=== PATIENT | male | born 1935 | race Caucasian/White ===

== ENCOUNTER 2018-06-10 14:20 | Inpatient (IN) ==
[2018-06-10] MEDS ORDERED: MORPHINE 4 MG/1 ML VIAL IV PRN (17:40)
[2018-06-10] MEDS ORDERED: ACETAMINOPHEN 325 MG TABLET PO PRN (17:40)
[2018-06-10] MEDS ORDERED: ONDANSETRON 4 MG/2 ML VIAL IV PRN (17:40)
[2018-06-10] MEDS ORDERED: SODIUM CHLORIDE 0.9% 1,000 ML IV PRN (17:42)
[2018-06-10] MEDS ORDERED: FUROSEMIDE 20 MG/2 ML VIAL IV ONE (17:54)
[2018-06-10 18:12] LABS: Basophils % 0.2 % (0.0-0.8); Eosinophils # 0.2 10*3/uL (0.0-0.87); Eosinophils % 2.3 % (0.00-10.9); Immature Granulocytes % 2.1 %; Immature Granulocytes Absolute 0.14 #; Lymphocytes # 0.9 10*3/uL (1.4-4.0); Lymphocytes % 13.5 % (21.2-54.2); Mean Corpuscular HGB Conc 28.7 GM/DL (32-36); Mean Corpuscular Hemoglobin 37 PG (27-34); Mean Corpuscular Volume 128.1 FL (87-102); Mean Platelet Volume 9.8 FL (9.6-12.0); Monocytes # 0.4 10*3/uL (0.11-0.8); Monocytes % 6.1 % (1.7-12.7); NRBC # 0.02 10*3/uL; Neutrophils # 4.9 10*3/uL (1.4-7.4); Neutrophils % 75.8 % (38.7-73.9); Platelet Count 237 T/CUMM (130-400); Red Blood Count 1.39 MC/CUMM (3.8-5.5); Red Cell Distribution Width 18.4 % (9.3-17.3); White Blood Count 6.5 T/CUMM (4-12)
[2018-06-10 18:15] LABS: Hematocrit 17.8 VOL% (42.0-52.0); Hemoglobin 5.1 GM/DL (14.0-18.0)
[2018-06-10 18:30] LABS: Folate 6.3 NG/ML (5.4-24.0); Vitamin B12 572 PG/ML (211-911)
[2018-06-10 18:35] LABS: Anisocytosis 1+; Polychromasia 1+
[2018-06-10 18:36] LABS: Platelet Estimate Adequate; Tear Drop Cells Few
[2018-06-10] MEDS ORDERED: ALBUTEROL/IPRATROPIUM 3 ML NEB RESP TX PRN (18:39)
[2018-06-10] MEDS ORDERED: FUROSEMIDE 20 MG TABLET PO PRN (18:39)
[2018-06-10 18:46] LABS: Bilirubin,Indirect 1.1 MG/DL (0.0-1.0); Haptoglobin < 8.0 MG/DL (30-200); Uric Acid 12.5 MG/DL (3.5-7.2)
[2018-06-10] MEDS ORDERED: PANTOPRAZOLE 40 MG VIAL IV SCH (21:00)
[2018-06-10] MEDS ORDERED: LISINOPRIL 5 MG TABLET PO SCH (21:00)
[2018-06-10] MEDS ORDERED: SPIRONOLACTONE 25 MG TABLET PO SCH (21:00)
[2018-06-10] MEDS: TAMSULOSIN 0.4 MG CAPSULE PO SCH (21:21)
[2018-06-10] MEDS: FERROUS SULFATE 325 MG TABLET PO SCH (21:21)
[2018-06-10] MEDS: SERTRALINE 25 MG TABLET PO SCH (21:21)
[2018-06-10] MEDS: PANTOPRAZOLE 40 MG VIAL IV SCH (21:22)
[2018-06-10 23:47] LABS: Sedimentation Rate-Westergren 110 MM/HR (0-20)
[2018-06-11 03:37] LABS: Basophils % 0.2 % (0.0-0.8); Eosinophils # 0.2 10*3/uL (0.0-0.87); Eosinophils % 3.6 % (0.00-10.9); Immature Granulocytes % 1.7 %; Lymphocytes # 0.9 10*3/uL (1.4-4.0); Lymphocytes % 14.9 % (21.2-54.2); Mean Corpuscular HGB Conc 28.8 GM/DL (32-36); Mean Corpuscular Hemoglobin 37 PG (27-34); Mean Corpuscular Volume 126.9 FL (87-102); Mean Platelet Volume 9.9 FL (9.6-12.0); Monocytes # 0.5 10*3/uL (0.11-0.8); Monocytes % 7.9 % (1.7-12.7); NRBC # 0.04 10*3/uL; Neutrophils # 4.2 10*3/uL (1.4-7.4); Neutrophils % 71.7 % (38.7-73.9); Platelet Count 224 T/CUMM (130-400); Red Blood Count 1.34 MC/CUMM (3.8-5.5); White Blood Count 5.9 T/CUMM (4-12)
[2018-06-11 03:51] LABS: Hemoglobin 4.9 GM/DL (14.0-18.0)
[2018-06-11 03:52] LABS: Calcium 8.8 MG/DL (8.5-10.1); Osmolality,Calculated 285.4 MOS/KG (273-304); Potassium 3.6 MMOL/L (3.5-5.1)
[2018-06-11 05:25] LABS: Hypochromasia 1+; Macrocytosis Slight; Platelet Estimate Adequate; Polychromasia Slight
[2018-06-11 08:01] LABS: Hemoglobin A1 (Alkaline) 97.5 % (96.5-98.5); Hemoglobin A2 (Alkaline) 2.5 % (1.5-3.5)
[2018-06-11] MEDS ORDERED: CYANOCOBALAMIN 1000 MCG/1 ML VIAL SUBCUT SCH (09:00)
[2018-06-11] MEDS: PANTOPRAZOLE 40 MG VIAL IV SCH ×2 (09:30→20:07)
[2018-06-11] MEDS: TAMSULOSIN 0.4 MG CAPSULE PO SCH ×2 (09:30→20:06)
[2018-06-11] MEDS: FERROUS SULFATE 325 MG TABLET PO SCH ×2 (09:30→20:07)
[2018-06-11] MEDS ORDERED: IMMUNE GLOBULIN 10% 20 GM in PREMIX 1 EACH IV ONE (17:26)
[2018-06-11] MEDS ORDERED: diphenhydrAMINE CAP 25 MG CAPSULE PO PRN (17:27)
[2018-06-11] MEDS: methylPREDNISolone SOD SUC 125 MG/2 ML VIAL IV SCH (18:40)
[2018-06-11] MEDS: SERTRALINE 25 MG TABLET PO SCH (20:06)
[2018-06-11 20:37] LABS: Apearance,Urine CLEAR (Clear); Bacteria,Urine Occasional /HPF (Few); Bilirubin,Urine Negative (Negative); Blood, Urine Negative (Negative); Glucose,Urine (UA) Negative (Negative); Hyaline Casts,Urine 1 /LPF (0-3); Ketones,Urine Negative (Negative); Mucus,Urine Occasional /LPF (Occasional); Nitrite,Urine Positive (Negative); Protein,Urine Negative; RBC,Urine 1 /HPF (0-4); Renal Epithelial Cells,Urine Occasional /HPF (<1); Squamous Epithelial Cell,Urine Occasional /HPF (0-10); Urine Color Amber (Yellow); Urine Specific Gravity 1.011 (1.001-1.035); WBC,Urine 6 /HPF (0-6)
[2018-06-12 05:31] LABS: Immature Granulocytes % 2.3 %; Immature Granulocytes Absolute 0.06 #; Lymphocytes # 0.4 10*3/uL (1.4-4.0); Lymphocytes % 16.2 % (21.2-54.2); Mean Corpuscular HGB Conc 29.1 GM/DL (32-36); Mean Corpuscular Hemoglobin 37 PG (27-34); Mean Corpuscular Volume 125.9 FL (87-102); Mean Platelet Volume 9.7 FL (9.6-12.0); Monocytes # 0.1 10*3/uL (0.11-0.8); Monocytes % 2.3 % (1.7-12.7); Neutrophils # 2.1 10*3/uL (1.4-7.4); Neutrophils % 79.2 % (38.7-73.9); Platelet Count 208 T/CUMM (130-400); Red Blood Count 1.39 MC/CUMM (3.8-5.5); Red Cell Distribution Width 17.3 % (9.3-17.3); White Blood Count 2.7 T/CUMM (4-12)
[2018-06-12 05:34] LABS: Hemoglobin 5.1 GM/DL (14.0-18.0)
[2018-06-12 05:35] LABS: Hematocrit 17.5 VOL% (42.0-52.0)
[2018-06-12 05:36] LABS: INR 1.5; PT Patient Result 16.1 SECS
[2018-06-12] MEDS: methylPREDNISolone SOD SUC 125 MG/2 ML VIAL IV SCH ×2 (05:40→17:12)
[2018-06-12 05:42] LABS: Calcium 8.2 MG/DL (8.5-10.1); Osmolality,Calculated 282.8 MOS/KG (273-304); Potassium 4.1 MMOL/L (3.5-5.1)
[2018-06-12 06:03] LABS: Hypochromasia 1+; Platelet Estimate Adequate
[2018-06-12 06:04] LABS: Macrocytosis Slight; Polychromasia Slight
[2018-06-12] MEDS: PANTOPRAZOLE 40 MG VIAL IV SCH ×2 (08:57→20:33)
[2018-06-12] MEDS: TAMSULOSIN 0.4 MG CAPSULE PO SCH ×2 (08:57→20:33)
[2018-06-12] MEDS: FERROUS SULFATE 325 MG TABLET PO SCH ×2 (08:57→20:33)
[2018-06-12] MEDS: cefTRIAXone 1,000 MG in SYRINGE 1 EACH IV SCH (08:57)
[2018-06-12] MEDS: FOLIC ACID 1 MG TABLET PO SCH (08:57)
[2018-06-12] MEDS ORDERED: PNEUMOCOCCAL VACCINE (13 VALENT) 0.5 ML SYRINGE IM ONE (09:00)
[2018-06-12] MEDS ORDERED: IMMUNE GLOBULIN 10% 20 GM in PREMIX 1 EACH IV ONE (11:30)
[2018-06-12] MEDS: WARFARIN 3 MG TABLET PO SCH (17:12)
[2018-06-12] MEDS: SERTRALINE 25 MG TABLET PO SCH (20:33)
[2018-06-13 04:25] LABS: INR 1.3; PT Patient Result 13.1 SECS
[2018-06-13] MEDS: methylPREDNISolone SOD SUC 125 MG/2 ML VIAL IV SCH ×2 (05:48→17:45)
[2018-06-13 09:53] LABS: Immature Granulocytes % 1.2 %; Immature Granulocytes Absolute 0.06 #; Lymphocytes # 0.3 10*3/uL (1.4-4.0); Lymphocytes % 6.5 % (21.2-54.2); Mean Corpuscular Hemoglobin 36 PG (27-34); Mean Corpuscular Volume 121.2 FL (87-102); Mean Platelet Volume 9.8 FL (9.6-12.0); Monocytes # 0.1 10*3/uL (0.11-0.8); Monocytes % 2.8 % (1.7-12.7); Neutrophils # 4.4 10*3/uL (1.4-7.4); Neutrophils % 89.5 % (38.7-73.9); Platelet Count 250 T/CUMM (130-400); Red Blood Count 1.65 MC/CUMM (3.8-5.5); Red Cell Distribution Width 16.9 % (9.3-17.3)
[2018-06-13 10:17] LABS: Albumin 2.9 G/DL (3.4-5.0); Bilirubin,Total 0.8 MG/DL (0.2-1.0); Calcium 8.9 MG/DL (8.5-10.1); Potassium 3.9 MMOL/L (3.5-5.1)
[2018-06-13] MEDS: cefTRIAXone 1,000 MG in SYRINGE 1 EACH IV SCH (10:19)
[2018-06-13] MEDS: PANTOPRAZOLE 40 MG VIAL IV SCH ×2 (10:19→20:33)
[2018-06-13] MEDS: FOLIC ACID 1 MG TABLET PO SCH (10:20)
[2018-06-13] MEDS: FERROUS SULFATE 325 MG TABLET PO SCH ×2 (10:20→20:32)
[2018-06-13] MEDS: TAMSULOSIN 0.4 MG CAPSULE PO SCH ×2 (10:20→20:32)
[2018-06-13] MEDS ORDERED: IMMUNE GLOBULIN 10% 20 GM in PREMIX 1 EACH IV ONE (11:18)
[2018-06-13 12:41] LABS: Platelet Estimate Normal
[2018-06-13 12:42] LABS: Anisocytosis 2+; Macrocytosis 2+; Polychromasia 2+
[2018-06-13 12:43] LABS: Tear Drop Cells Few
[2018-06-13] MEDS: WARFARIN 3 MG TABLET PO SCH (17:44)
[2018-06-13] MEDS: SERTRALINE 25 MG TABLET PO SCH (20:32)
[2018-06-14] MEDS: methylPREDNISolone SOD SUC 125 MG/2 ML VIAL IV SCH ×2 (05:54→16:48)
[2018-06-14 06:11] LABS: Hematocrit 20.1 VOL% (42.0-52.0); Immature Granulocytes % 2.8 %; Immature Granulocytes Absolute 0.15 #; Lymphocytes # 0.4 10*3/uL (1.4-4.0); Lymphocytes % 6.9 % (21.2-54.2); Mean Corpuscular HGB Conc 29.9 GM/DL (32-36); Mean Corpuscular Hemoglobin 36 PG (27-34); Mean Corpuscular Volume 121.8 FL (87-102); Mean Platelet Volume 10.1 FL (9.6-12.0); Monocytes # 0.2 10*3/uL (0.11-0.8); Monocytes % 3.8 % (1.7-12.7); Neutrophils # 4.6 10*3/uL (1.4-7.4); Neutrophils % 86.5 % (38.7-73.9); Platelet Count 214 T/CUMM (130-400); Red Blood Count 1.65 MC/CUMM (3.8-5.5); White Blood Count 5.3 T/CUMM (4-12)
[2018-06-14 06:14] LABS: INR 1.2; PT Patient Result 12.8 SECS
[2018-06-14 06:47] LABS: Albumin 2.8 G/DL (3.4-5.0); Bilirubin,Total 0.9 MG/DL (0.2-1.0); Calcium 8.9 MG/DL (8.5-10.1); Osmolality,Calculated 289.7 MOS/KG (273-304); Potassium 3.9 MMOL/L (3.5-5.1); Total Protein 6.9 G/DL (6.4-8.3)
[2018-06-14 07:24] LABS: Band Neutrophils 1 % (0-10); Lymphocytes 9 % (20-55); Platelet Estimate Normal; Segmented Neutrophils 87 % (50-85); Total Cells Counted 100
[2018-06-14] MEDS: FOLIC ACID 1 MG TABLET PO SCH (09:50)
[2018-06-14] MEDS: TAMSULOSIN 0.4 MG CAPSULE PO SCH ×2 (09:51→21:31)
[2018-06-14] MEDS: FERROUS SULFATE 325 MG TABLET PO SCH ×2 (09:51→21:31)
[2018-06-14] MEDS: PANTOPRAZOLE 40 MG VIAL IV SCH ×2 (09:51→21:31)
[2018-06-14] MEDS ORDERED: ACETAMINOPHEN 325 MG TABLET PO ONE (10:57)
[2018-06-14] MEDS ORDERED: diphenhydrAMINE 50 MG/1 ML VIAL IV ONE (10:59)
[2018-06-14] MEDS ORDERED: FAMOTIDINE 20 MG/2 ML VIAL IV ONE (11:00)
[2018-06-14] MEDS ORDERED: PNEUMOCOCCAL VACCINE (13 VALENT) 0.5 ML SYRINGE IM ONE (12:00)
[2018-06-14] MEDS ORDERED: SODIUM CHLORIDE 0.9% IV ONE (16:00)
[2018-06-14] MEDS ORDERED: RITUXIMAB IV ONE (16:00)
[2018-06-14] MEDS: PHENAZOPYRIDINE 95 MG TABLET PO SCH (16:48)
[2018-06-14] MEDS: WARFARIN 3 MG TABLET PO SCH (17:01)
[2018-06-14] MEDS: SERTRALINE 25 MG TABLET PO SCH (21:31)
[2018-06-15] MEDS: methylPREDNISolone SOD SUC 125 MG/2 ML VIAL IV SCH ×2 (05:50→17:56)
[2018-06-15 06:55] LABS: Hematocrit 22.6 VOL% (42.0-52.0); Hemoglobin 6.8 GM/DL (14.0-18.0); Immature Granulocytes % 3.8 %; Immature Granulocytes Absolute 0.22 #; Lymphocytes # 0.4 10*3/uL (1.4-4.0); Lymphocytes % 7.3 % (21.2-54.2); Mean Corpuscular HGB Conc 30.1 GM/DL (32-36); Mean Corpuscular Hemoglobin 36 PG (27-34); Mean Corpuscular Volume 119.6 FL (87-102); Mean Platelet Volume 9.8 FL (9.6-12.0); Monocytes # 0.3 10*3/uL (0.11-0.8); Monocytes % 4.4 % (1.7-12.7); Neutrophils # 4.8 10*3/uL (1.4-7.4); Neutrophils % 84.5 % (38.7-73.9); Platelet Count 210 T/CUMM (130-400); Red Blood Count 1.89 MC/CUMM (3.8-5.5); Red Cell Distribution Width 15.3 % (9.3-17.3); White Blood Count 5.7 T/CUMM (4-12)
[2018-06-15 06:57] LABS: INR 1.3; PT Patient Result 13.5 SECS
[2018-06-15 07:15] LABS: Hypochromasia 1+; Macrocytosis Slight; Platelet Estimate Adequate
[2018-06-15 07:16] LABS: Polychromasia Slight
[2018-06-15 07:17] LABS: Albumin 2.9 G/DL (3.4-5.0); Calcium 9.3 MG/DL (8.5-10.1); Osmolality,Calculated 283.8 MOS/KG (273-304); Potassium 4.9 MMOL/L (3.5-5.1); Total Protein 6.9 G/DL (6.4-8.3)
[2018-06-15] MEDS: PHENAZOPYRIDINE 95 MG TABLET PO SCH ×2 (09:11→17:45)
[2018-06-15] MEDS: TAMSULOSIN 0.4 MG CAPSULE PO SCH ×2 (09:11→21:09)
[2018-06-15] MEDS: PANTOPRAZOLE 40 MG VIAL IV SCH ×2 (09:12→21:10)
[2018-06-15] MEDS: FOLIC ACID 1 MG TABLET PO SCH (09:12)
[2018-06-15] MEDS: FERROUS SULFATE 325 MG TABLET PO SCH ×2 (09:12→21:09)
[2018-06-15] MEDS: WARFARIN 3 MG TABLET PO SCH (17:44)
[2018-06-15] MEDS: SERTRALINE 25 MG TABLET PO SCH (21:09)
[2018-06-16 02:17] LABS: Hematocrit 20.8 VOL% (42.0-52.0); Immature Granulocytes % 0.9 %; Immature Granulocytes Absolute 0.05 #; Lymphocytes # 0.2 10*3/uL (1.4-4.0); Lymphocytes % 4.2 % (21.2-54.2); Mean Corpuscular HGB Conc 30.3 GM/DL (32-36); Mean Corpuscular Hemoglobin 36 PG (27-34); Mean Corpuscular Volume 119.5 FL (87-102); Mean Platelet Volume 9.9 FL (9.6-12.0); Monocytes # 0.1 10*3/uL (0.11-0.8); Monocytes % 2.4 % (1.7-12.7); Neutrophils # 5.1 10*3/uL (1.4-7.4); Neutrophils % 92.5 % (38.7-73.9); Platelet Count 196 T/CUMM (130-400); Red Blood Count 1.74 MC/CUMM (3.8-5.5); Red Cell Distribution Width 14.9 % (9.3-17.3); White Blood Count 5.5 T/CUMM (4-12)
[2018-06-16 02:24] LABS: INR 1.3; PT Patient Result 13.2 SECS
[2018-06-16 02:26] LABS: Hemoglobin 6.3 GM/DL (14.0-18.0)
[2018-06-16 03:10] LABS: Albumin 2.8 G/DL (3.4-5.0); Bilirubin,Total 0.9 MG/DL (0.2-1.0); Calcium 8.4 MG/DL (8.5-10.1); Osmolality,Calculated 285.8 MOS/KG (273-304); Potassium 4.2 MMOL/L (3.5-5.1); Total Protein 6.2 G/DL (6.4-8.3)
[2018-06-16 04:16] LABS: Lymphocytes 10 % (20-55); Macrocytosis 3+; Platelet Estimate Normal; Segmented Neutrophils 90 % (50-85); Tear Drop Cells Few; Total Cells Counted 100
[2018-06-16 04:17] LABS: Anisocytosis 1+
[2018-06-16] MEDS: methylPREDNISolone SOD SUC 125 MG/2 ML VIAL IV SCH (05:39)
[2018-06-16] MEDS: FERROUS SULFATE 325 MG TABLET PO SCH ×2 (08:31→20:42)
[2018-06-16] MEDS: TAMSULOSIN 0.4 MG CAPSULE PO SCH ×2 (08:31→20:42)
[2018-06-16] MEDS: PANTOPRAZOLE 40 MG VIAL IV SCH ×2 (08:31→20:45)
[2018-06-16] MEDS: FOLIC ACID 1 MG TABLET PO SCH (08:31)
[2018-06-16] MEDS: PHENAZOPYRIDINE 95 MG TABLET PO SCH (08:31)
[2018-06-16] MEDS ORDERED: WARFARIN 5 MG TABLET PO ONE (17:01)
[2018-06-16] MEDS: WARFARIN 3 MG TABLET PO SCH (17:58)
[2018-06-16] MEDS: SERTRALINE 25 MG TABLET PO SCH (20:42)
[2018-06-17 05:47] LABS: INR 1.3; PT Patient Result 13.4 SECS
[2018-06-17] MEDS: predniSONE 20 MG TABLET PO SCH (08:44)
[2018-06-17] MEDS: TAMSULOSIN 0.4 MG CAPSULE PO SCH ×2 (08:44→21:07)
[2018-06-17] MEDS: FERROUS SULFATE 325 MG TABLET PO SCH ×2 (08:44→21:07)
[2018-06-17] MEDS: FOLIC ACID 1 MG TABLET PO SCH (08:45)
[2018-06-17] MEDS: PANTOPRAZOLE 40 MG VIAL IV SCH ×2 (09:08→21:09)
[2018-06-17 09:45] LABS: Eosinophils # 0.1 10*3/uL (0.0-0.87); Eosinophils % 0.7 % (0.00-10.9); Hematocrit 24.9 VOL% (42.0-52.0); Hemoglobin 7.5 GM/DL (14.0-18.0); Immature Granulocytes Absolute 0.08 #; Lymphocytes # 0.7 10*3/uL (1.4-4.0); Lymphocytes % 8.7 % (21.2-54.2); Mean Corpuscular HGB Conc 30.1 GM/DL (32-36); Mean Corpuscular Hemoglobin 36 PG (27-34); Mean Corpuscular Volume 119.7 FL (87-102); Mean Platelet Volume 9.6 FL (9.6-12.0); Monocytes # 0.3 10*3/uL (0.11-0.8); Monocytes % 3.9 % (1.7-12.7); Neutrophils # 6.5 10*3/uL (1.4-7.4); Neutrophils % 85.7 % (38.7-73.9); Platelet Count 174 T/CUMM (130-400); Red Blood Count 2.08 MC/CUMM (3.8-5.5); Red Cell Distribution Width 14.7 % (9.3-17.3); White Blood Count 7.6 T/CUMM (4-12)
[2018-06-17 10:04] LABS: Hypochromasia 1+; Macrocytosis Slight; Platelet Estimate Adequate
[2018-06-17 10:09] LABS: Albumin 2.6 G/DL (3.4-5.0); Bilirubin,Total 0.9 MG/DL (0.2-1.0); Calcium 8.4 MG/DL (8.5-10.1); Osmolality,Calculated 287.4 MOS/KG (273-304); Potassium 3.7 MMOL/L (3.5-5.1)
[2018-06-17] MEDS ORDERED: LOPERAMIDE 2 MG CAPSULE PO PRN (10:15)
[2018-06-17] MEDS ORDERED: WARFARIN 5 MG TABLET PO ONE (13:15)
[2018-06-17] MEDS: WARFARIN 3 MG TABLET PO SCH (18:41)
[2018-06-17] MEDS: SERTRALINE 25 MG TABLET PO SCH (21:07)
[2018-06-18 05:12] LABS: Hemoglobin 7.4 GM/DL (14.0-18.0); Lymphocytes % 7.5 % (21.2-54.2); Mean Corpuscular HGB Conc 30.8 GM/DL (32-36); Mean Corpuscular Hemoglobin 37 PG (27-34); Mean Corpuscular Volume 118.2 FL (87-102); Mean Platelet Volume 9.9 FL (9.6-12.0); Monocytes % 3.5 % (1.7-12.7); Neutrophils % 88.2 % (38.7-73.9); Platelet Count 175 T/CUMM (130-400); Red Blood Count 2.03 MC/CUMM (3.8-5.5); Red Cell Distribution Width 14.3 % (9.3-17.3)
[2018-06-18 05:13] LABS: Immature Granulocytes % 0.8 %; Immature Granulocytes Absolute 0.05 #; Lymphocytes # 0.5 10*3/uL (1.4-4.0); Monocytes # 0.2 10*3/uL (0.11-0.8); Neutrophils # 5.3 10*3/uL (1.4-7.4)
[2018-06-18 05:20] LABS: INR 1.5; PT Patient Result 15.7 SECS
[2018-06-18 05:38] LABS: Hypochromasia 1+; Macrocytosis Slight; Ovalocytes Slight
[2018-06-18 05:39] LABS: Platelet Estimate Adequate
[2018-06-18] MEDS: predniSONE 20 MG TABLET PO SCH (10:20)
[2018-06-18] MEDS: TAMSULOSIN 0.4 MG CAPSULE PO SCH ×2 (10:20→20:50)
[2018-06-18] MEDS: FOLIC ACID 1 MG TABLET PO SCH (10:20)
[2018-06-18] MEDS: FERROUS SULFATE 325 MG TABLET PO SCH ×2 (10:21→20:50)
[2018-06-18] MEDS: PANTOPRAZOLE 40 MG VIAL IV SCH ×2 (10:22→20:50)
[2018-06-18] MEDS ORDERED: WARFARIN 3 MG TABLET PO ONE (10:57)
[2018-06-18] MEDS ORDERED: ALBUMIN 5% 12.5 GM in PREMIX 1 EACH IV ONE (11:30)
[2018-06-18] MEDS ORDERED: diphenhydrAMINE 50 MG/1 ML VIAL IV ONE (16:47)
[2018-06-18] MEDS ORDERED: ACETAMINOPHEN 325 MG TABLET PO ONE (16:48)
[2018-06-18] MEDS: WARFARIN 3 MG TABLET PO SCH (18:33)
[2018-06-18] MEDS: SERTRALINE 25 MG TABLET PO SCH (20:50)
[2018-06-19 04:45] LABS: Hematocrit 26.8 VOL% (42.0-52.0); Hemoglobin 8.6 GM/DL (14.0-18.0); Immature Granulocytes % 0.5 %; Immature Granulocytes Absolute 0.03 #; Lymphocytes # 0.5 10*3/uL (1.4-4.0); Lymphocytes % 7.7 % (21.2-54.2); Mean Corpuscular HGB Conc 32.1 GM/DL (32-36); Mean Corpuscular Hemoglobin 35 PG (27-34); Mean Corpuscular Volume 108.9 FL (87-102); Mean Platelet Volume 9.6 FL (9.6-12.0); Monocytes # 0.2 10*3/uL (0.11-0.8); Monocytes % 3.5 % (1.7-12.7); Neutrophils # 5.5 10*3/uL (1.4-7.4); Neutrophils % 88.3 % (38.7-73.9); Platelet Count 165 T/CUMM (130-400); Red Blood Count 2.46 MC/CUMM (3.8-5.5); Red Cell Distribution Width 18.8 % (9.3-17.3); White Blood Count 6.2 T/CUMM (4-12)
[2018-06-19 04:53] LABS: INR 1.9; PT Patient Result 19.7 SECS
[2018-06-19] MEDS: FOLIC ACID 1 MG TABLET PO SCH (09:23)
[2018-06-19] MEDS: FERROUS SULFATE 325 MG TABLET PO SCH (09:23)
[2018-06-19] MEDS: predniSONE 20 MG TABLET PO SCH (09:24)
[2018-06-19] MEDS: TAMSULOSIN 0.4 MG CAPSULE PO SCH (09:24)
[2018-06-19] MEDS: PANTOPRAZOLE 40 MG VIAL IV SCH (09:26)
[2018-06-19 14:01] VITALS: BP 145/70
== END 2018-06-19 15:25 | disposition swing bed (61) | DRG 809 ==
LOC: N.CC 16:25 → SUATTDRO 16:25 → N.4E 06-12 13:54
PROVIDERS: ADMIT Internal Medicine; ATTEND Internal Medicine

== ENCOUNTER 2018-08-06 13:26 | Inpatient (IN) ==
[2018-08-06] MEDS ORDERED: ACETAMINOPHEN 325 MG TABLET PO PRN (18:01)
[2018-08-06] MEDS ORDERED: SKIN HEALING OINT (AQUAPHOR) 50 GM TUBE TOP PRN (18:01)
[2018-08-06] MEDS ORDERED: DIPHENOXYLATE/ATROPINE 2.5-0.025 MG TABLET PO PRN (18:01)
[2018-08-06] MEDS: CHOLESTYRAMINE 4 GM PACK PO SCH (20:20)
[2018-08-06 22:23] LABS: Hematocrit 25.9 VOL% (42.0-52.0); Hemoglobin 8.8 GM/DL (14.0-18.0); Immature Granulocytes % 8.4 %; Immature Granulocytes Absolute 0.49 #; Lymphocytes # 0.3 10*3/uL (1.4-4.0); Lymphocytes % 5.1 % (21.2-54.2); Mean Corpuscular Hemoglobin 34 PG (27-34); Mean Corpuscular Volume 101.2 FL (87-102); Mean Platelet Volume 11.1 FL (9.6-12.0); Monocytes # 0.1 10*3/uL (0.11-0.8); Monocytes % 1.7 % (1.7-12.7); Neutrophils % 84.8 % (38.7-73.9); Platelet Count 76 T/CUMM (130-400); Red Blood Count 2.56 MC/CUMM (3.8-5.5); Red Cell Distribution Width 15.4 % (9.3-17.3); White Blood Count 5.8 T/CUMM (4-12)
[2018-08-06 22:39] LABS: Calcium 8.4 MG/DL (8.5-10.1); Potassium 4.6 MMOL/L (3.5-5.1)
[2018-08-06 22:44] LABS: INR 1.2; PT Patient Result 12.9 SECS
[2018-08-06 23:43] LABS: Anisocytosis 2+; Band Neutrophils 12 % (0-10); Lymphocytes 2 % (20-55); Macrocytosis 2+; Metamyelocytes 2 %; Myelocytes 1 %; Platelet Estimate Decreased; Segmented Neutrophils 80 % (50-85); Total Cells Counted 100
[2018-08-06] MEDS: SODIUM CHLORIDE 0.45% 1,000 ML IV SCH (23:57)
[2018-08-07 05:46] LABS: INR 1.2
[2018-08-07] MEDS ORDERED: predniSONE 20 MG TABLET PO SCH (09:00)
[2018-08-07] MEDS ORDERED: WARFARIN 3 MG TABLET PO SCH (09:00)
[2018-08-07] MEDS ORDERED: SODIUM CHLORIDE 0.9% 1,000 ML IV PRN (09:08)
[2018-08-07 09:46] LABS: Hematocrit 24.9 VOL% (42.0-52.0); Hemoglobin 8.7 GM/DL (14.0-18.0); Immature Granulocytes % 8.8 %; Lymphocytes # 0.3 10*3/uL (1.4-4.0); Lymphocytes % 4.2 % (21.2-54.2); Mean Corpuscular HGB Conc 34.9 GM/DL (32-36); Mean Corpuscular Hemoglobin 35 PG (27-34); Mean Corpuscular Volume 100.4 FL (87-102); Mean Platelet Volume 10.9 FL (9.6-12.0); Monocytes # 0.2 10*3/uL (0.11-0.8); Monocytes % 2.9 % (1.7-12.7); NRBC # 0.02 10*3/uL; Neutrophils # 5.8 10*3/uL (1.4-7.4); Neutrophils % 84.1 % (38.7-73.9); Platelet Count 73 T/CUMM (130-400); Red Blood Count 2.48 MC/CUMM (3.8-5.5); Red Cell Distribution Width 15.5 % (9.3-17.3); White Blood Count 6.9 T/CUMM (4-12)
[2018-08-07 10:13] LABS: Band Neutrophils 3 % (0-10); Lymphocytes 6 % (20-55); Segmented Neutrophils 88 % (50-85); Total Cells Counted 100
[2018-08-07 10:14] LABS: Anisocytosis 1+; Macrocytosis 1+; Tear Drop Cells Slight
[2018-08-07] MEDS: FOLIC ACID 1 MG TABLET PO SCH (10:14)
[2018-08-07] MEDS: PANTOPRAZOLE 40 MG TABLET PO SCH (10:14)
[2018-08-07] MEDS: CHOLESTYRAMINE 4 GM PACK PO SCH ×3 (10:14→21:15)
[2018-08-07] MEDS: TAMSULOSIN 0.4 MG CAPSULE PO SCH (10:14)
[2018-08-07 10:15] LABS: Platelet Estimate Decreased
[2018-08-07] MEDS ORDERED: DEXTROSE 50% 25 GM/50 ML VIAL IV PRN (10:38)
[2018-08-07] MEDS ORDERED: GLUCAGON 1 MG VIAL IM PRN (10:38)
[2018-08-07 15:01] LABS: Apearance,Urine Slightly Hazy (Clear); Bacteria,Urine Occasional /HPF (Few); Bilirubin,Urine Negative (Negative); Blood, Urine Negative (Negative); Glucose,Urine (UA) Negative (Negative); Hyaline Casts,Urine 1 /LPF (0-3); Ketones,Urine Negative (Negative); Mucus,Urine Occasional /LPF (Occasional); Nitrite,Urine Negative (Negative); Protein,Urine Negative; RBC,Urine 1 /HPF (0-4); Squamous Epithelial Cell,Urine Occasional /HPF (0-10); Urine Color Yellow (Yellow); Urine Specific Gravity 1.015 (1.001-1.035); Urine Urobilinogen < 2.0 EU/DL (0.2-1.0); WBC,Urine 3 /HPF (0-6)
[2018-08-07] MEDS: MENTHOL/ZINC OXIDE OINT 71 GM JAR TOP SCH ×2 (16:24→21:24)
[2018-08-07] MEDS: SODIUM HYPOCHLORITE 0.25% IRRIG 473 ML BOTTLE TOP SCH (16:25)
[2018-08-08 06:59] LABS: Basophils % 0.1 % (0.0-0.8); Eosinophils % 0.1 % (0.00-10.9); Hematocrit 32.1 VOL% (42.0-52.0); Hemoglobin 10.9 GM/DL (14.0-18.0); Immature Granulocytes % 9.1 %; Immature Granulocytes Absolute 0.72 #; Lymphocytes # 0.4 10*3/uL (1.4-4.0); Lymphocytes % 5.3 % (21.2-54.2); Mean Corpuscular Hemoglobin 33 PG (27-34); Mean Corpuscular Volume 98.5 FL (87-102); Mean Platelet Volume 10.8 FL (9.6-12.0); Monocytes # 0.2 10*3/uL (0.11-0.8); Monocytes % 2.8 % (1.7-12.7); NRBC # 0.04 10*3/uL; Neutrophils # 6.6 10*3/uL (1.4-7.4); Neutrophils % 82.6 % (38.7-73.9); Platelet Count 70 T/CUMM (130-400); Red Blood Count 3.26 MC/CUMM (3.8-5.5); Red Cell Distribution Width 15.9 % (9.3-17.3); White Blood Count 7.9 T/CUMM (4-12)
[2018-08-08 07:08] LABS: INR 1.4; PT Patient Result 14.1 SECS
[2018-08-08 07:14] LABS: Calcium 9.1 MG/DL (8.5-10.1); Potassium 4.9 MMOL/L (3.5-5.1)
[2018-08-08 07:22] LABS: Anisocytosis 1+; Band Neutrophils 28 % (0-10); Lymphocytes 4 % (20-55); Macrocytosis Slight; Platelet Estimate Decreased; Polychromasia Slight; Segmented Neutrophils 64 % (50-85); Total Cells Counted 100
[2018-08-08] MEDS: PANTOPRAZOLE 40 MG TABLET PO SCH ×2 (08:59→21:51)
[2018-08-08] MEDS: predniSONE 20 MG TABLET PO SCH (08:59)
[2018-08-08] MEDS: TAMSULOSIN 0.4 MG CAPSULE PO SCH (08:59)
[2018-08-08] MEDS: FOLIC ACID 1 MG TABLET PO SCH (08:59)
[2018-08-08] MEDS: SODIUM HYPOCHLORITE 0.25% IRRIG 473 ML BOTTLE TOP SCH (08:59)
[2018-08-08] MEDS: MENTHOL/ZINC OXIDE OINT 71 GM JAR TOP SCH ×2 (08:59→21:53)
[2018-08-08] MEDS: CHOLESTYRAMINE 4 GM PACK PO SCH ×3 (09:45→21:52)
[2018-08-08] MEDS: SODIUM CHLORIDE 0.45% 1,000 ML IV SCH (12:02)
[2018-08-08] MEDS ORDERED: WARFARIN 3 MG TABLET PO SCH (18:00)
[2018-08-09 02:15] LABS: Basophils % 0.1 % (0.0-0.8); Eosinophils % 0.1 % (0.00-10.9); Hematocrit 29.7 VOL% (42.0-52.0); Hemoglobin 10.1 GM/DL (14.0-18.0); Immature Granulocytes % 7.1 %; Immature Granulocytes Absolute 0.51 #; Lymphocytes # 0.4 10*3/uL (1.4-4.0); Mean Corpuscular Hemoglobin 34 PG (27-34); Mean Corpuscular Volume 98.7 FL (87-102); Mean Platelet Volume 11.3 FL (9.6-12.0); Monocytes # 0.2 10*3/uL (0.11-0.8); Monocytes % 2.2 % (1.7-12.7); NRBC # 0.03 10*3/uL; Neutrophils # 6.1 10*3/uL (1.4-7.4); Neutrophils % 85.5 % (38.7-73.9); Red Blood Count 3.01 MC/CUMM (3.8-5.5); Red Cell Distribution Width 16.8 % (9.3-17.3); White Blood Count 7.2 T/CUMM (4-12)
[2018-08-09 02:20] LABS: INR 1.3; Platelet Count 58 T/CUMM (130-400)
[2018-08-09 02:30] LABS: Calcium 8.2 MG/DL (8.5-10.1); Potassium 4.7 MMOL/L (3.5-5.1)
[2018-08-09 02:49] LABS: Band Neutrophils 3 % (0-10); Lymphocytes 5 % (20-55); Myelocytes 1 %; Segmented Neutrophils 89 % (50-85)
[2018-08-09 02:50] LABS: Platelet Estimate Decreased; Polychromasia Few
[2018-08-09 02:51] LABS: Total Cells Counted 100
[2018-08-09] MEDS: TAMSULOSIN 0.4 MG CAPSULE PO SCH (09:57)
[2018-08-09] MEDS: CHOLESTYRAMINE 4 GM PACK PO SCH ×3 (09:57→21:47)
[2018-08-09] MEDS: PANTOPRAZOLE 40 MG TABLET PO SCH (09:57)
[2018-08-09] MEDS: MENTHOL/ZINC OXIDE OINT 71 GM JAR TOP SCH ×2 (09:57→21:53)
[2018-08-09] MEDS: FOLIC ACID 1 MG TABLET PO SCH (09:57)
[2018-08-09] MEDS: predniSONE 20 MG TABLET PO SCH (09:57)
[2018-08-09] MEDS: SODIUM HYPOCHLORITE 0.25% IRRIG 473 ML BOTTLE TOP SCH (09:58)
[2018-08-09] MEDS: SODIUM CHLORIDE 0.45% 1,000 ML IV SCH (13:02)
[2018-08-10] MEDS: PANTOPRAZOLE 40 MG TABLET PO SCH ×3 (01:04→22:14)
[2018-08-10 05:27] LABS: Basophils % 0.1 % (0.0-0.8); Eosinophils % 0.3 % (0.00-10.9); Hematocrit 30.5 VOL% (42.0-52.0); Hemoglobin 10.4 GM/DL (14.0-18.0); Immature Granulocytes % 7.1 %; Immature Granulocytes Absolute 0.53 #; Lymphocytes # 0.5 10*3/uL (1.4-4.0); Lymphocytes % 6.5 % (21.2-54.2); Mean Corpuscular HGB Conc 34.1 GM/DL (32-36); Mean Corpuscular Hemoglobin 33 PG (27-34); Mean Corpuscular Volume 97.8 FL (87-102); Mean Platelet Volume 10.9 FL (9.6-12.0); Monocytes # 0.2 10*3/uL (0.11-0.8); Monocytes % 3.2 % (1.7-12.7); NRBC # 0.02 10*3/uL; Neutrophils # 6.2 10*3/uL (1.4-7.4); Neutrophils % 82.8 % (38.7-73.9); Platelet Count 54 T/CUMM (130-400); Red Blood Count 3.12 MC/CUMM (3.8-5.5); White Blood Count 7.5 T/CUMM (4-12)
[2018-08-10 05:57] LABS: Calcium 8.5 MG/DL (8.5-10.1)
[2018-08-10 05:58] LABS: Osmolality,Calculated 273.2 MOS/KG (273-304); Potassium 4.8 MMOL/L (3.5-5.1)
[2018-08-10 06:53] LABS: Band Neutrophils 3 % (0-10); Hypochromasia 1+; Lymphocytes 5 % (20-55); Ovalocytes Slight; Platelet Estimate Decreased; Segmented Neutrophils 88 % (50-85); Total Cells Counted 100
[2018-08-10] MEDS ORDERED: CHOLESTYRAMINE 4 GM PACK PO SCH (09:00)
[2018-08-10] MEDS: SODIUM HYPOCHLORITE 0.25% IRRIG 473 ML BOTTLE TOP SCH (09:37)
[2018-08-10] MEDS: MENTHOL/ZINC OXIDE OINT 71 GM JAR TOP SCH ×2 (09:37→21:02)
[2018-08-10] MEDS: FOLIC ACID 1 MG TABLET PO SCH (10:54)
[2018-08-10] MEDS: TAMSULOSIN 0.4 MG CAPSULE PO SCH (10:54)
[2018-08-10] MEDS: predniSONE 20 MG TABLET PO SCH (10:54)
[2018-08-10] MEDS: COLESTIPOL 1 GM TABLET PO SCH (20:50)
[2018-08-11] MEDS: SODIUM CHLORIDE 0.45% 1,000 ML IV SCH ×2 (09:30→12:41)
[2018-08-11] MEDS: predniSONE 20 MG TABLET PO SCH (09:32)
[2018-08-11] MEDS: FOLIC ACID 1 MG TABLET PO SCH (09:32)
[2018-08-11] MEDS: PANTOPRAZOLE 40 MG TABLET PO SCH ×2 (09:32→21:41)
[2018-08-11] MEDS: TAMSULOSIN 0.4 MG CAPSULE PO SCH (09:32)
[2018-08-11] MEDS: MENTHOL/ZINC OXIDE OINT 71 GM JAR TOP SCH ×2 (09:35→21:43)
[2018-08-11] MEDS: SODIUM HYPOCHLORITE 0.25% IRRIG 473 ML BOTTLE TOP SCH (09:35)
[2018-08-11] MEDS: COLESTIPOL 1 GM TABLET PO SCH ×3 (12:34→21:25)
[2018-08-12 05:46] LABS: Basophils % 0.2 % (0.0-0.8); Eosinophils % 0.2 % (0.00-10.9); Hematocrit 30.1 VOL% (42.0-52.0); Immature Granulocytes % 7.5 %; Immature Granulocytes Absolute 0.47 #; Lymphocytes # 0.6 10*3/uL (1.4-4.0); Lymphocytes % 9.6 % (21.2-54.2); Mean Corpuscular HGB Conc 33.2 GM/DL (32-36); Mean Corpuscular Hemoglobin 33 PG (27-34); Mean Corpuscular Volume 98.7 FL (87-102); Mean Platelet Volume 10.9 FL (9.6-12.0); Monocytes # 0.2 10*3/uL (0.11-0.8); Neutrophils % 79.5 % (38.7-73.9); Platelet Count 50 T/CUMM (130-400); Red Blood Count 3.05 MC/CUMM (3.8-5.5); White Blood Count 6.3 T/CUMM (4-12)
[2018-08-12 06:47] LABS: Band Neutrophils 4 % (0-10); Lymphocytes 4 % (20-55); Macrocytosis 1+; Segmented Neutrophils 91 % (50-85); Total Cells Counted 100
[2018-08-12 06:48] LABS: Acanthocytes Few; Anisocytosis 1+; Ovalocytes Slight; Platelet Estimate Decreased
[2018-08-12 07:01] LABS: Albumin 2.2 G/DL (3.4-5.0); Bilirubin,Total 0.7 MG/DL (0.2-1.0); Calcium 8.5 MG/DL (8.5-10.1); Osmolality,Calculated 275.1 MOS/KG (273-304); Potassium 4.6 MMOL/L (3.5-5.1); Total Protein 4.6 G/DL (6.4-8.3)
[2018-08-12] MEDS: TAMSULOSIN 0.4 MG CAPSULE PO SCH (08:18)
[2018-08-12] MEDS: FUROSEMIDE 20 MG TABLET PO SCH (08:18)
[2018-08-12] MEDS: predniSONE 20 MG TABLET PO SCH (08:18)
[2018-08-12] MEDS: FOLIC ACID 1 MG TABLET PO SCH (08:18)
[2018-08-12] MEDS: PANTOPRAZOLE 40 MG TABLET PO SCH ×2 (08:19→21:13)
[2018-08-12] MEDS: SPIRONOLACTONE 25 MG TABLET PO SCH (08:51)
[2018-08-12] MEDS: SODIUM CHLORIDE 0.45% 1,000 ML IV SCH (10:24)
[2018-08-12] MEDS: COLESTIPOL 1 GM TABLET PO SCH ×2 (12:46→23:27)
[2018-08-12] MEDS: MENTHOL/ZINC OXIDE OINT 71 GM JAR TOP SCH ×2 (12:51→21:17)
[2018-08-12] MEDS: SUCRALFATE 1 GM/10 ML UDCUP PO SCH ×3 (12:52→21:14)
[2018-08-12] MEDS: PARoxetine 20 MG TABLET PO SCH (19:24)
[2018-08-12] MEDS: SODIUM HYPOCHLORITE 0.25% IRRIG 473 ML BOTTLE TOP SCH (19:26)
[2018-08-13 05:06] LABS: Eosinophils % 0.2 % (0.00-10.9); Hematocrit 28.8 VOL% (42.0-52.0); Hemoglobin 9.8 GM/DL (14.0-18.0); Immature Granulocytes % 9.6 %; Immature Granulocytes Absolute 0.44 #; Lymphocytes # 0.4 10*3/uL (1.4-4.0); Mean Corpuscular Hemoglobin 33 PG (27-34); Mean Platelet Volume 11.6 FL (9.6-12.0); Monocytes # 0.2 10*3/uL (0.11-0.8); Monocytes % 4.3 % (1.7-12.7); Neutrophils # 3.6 10*3/uL (1.4-7.4); Neutrophils % 77.9 % (38.7-73.9); Red Blood Count 2.97 MC/CUMM (3.8-5.5); Red Cell Distribution Width 16.6 % (9.3-17.3); White Blood Count 4.6 T/CUMM (4-12)
[2018-08-13 05:15] LABS: Platelet Count 54 T/CUMM (130-400)
[2018-08-13 05:32] LABS: Albumin 2.2 G/DL (3.4-5.0); Bilirubin,Total 0.7 MG/DL (0.2-1.0); Calcium 8.6 MG/DL (8.5-10.1); Osmolality,Calculated 277.1 MOS/KG (273-304); Potassium 4.5 MMOL/L (3.5-5.1); Total Protein 4.5 G/DL (6.4-8.3)
[2018-08-13 06:26] LABS: Band Neutrophils 5 % (0-10); Burr Cells Slight; Eosinophils 1 % (0-10); Hypochromasia 1+; Lymphocytes 3 % (20-55); Macrocytosis Slight; Nucleated Red Blood Cells 1 (0-5); Ovalocytes Slight; Platelet Estimate Decreased; Segmented Neutrophils 86 % (50-85); Total Cells Counted 100
[2018-08-13] MEDS: ALBUTEROL/IPRATROPIUM 3 ML NEB RESP TX PRN ×3 (07:27→23:33)
[2018-08-13] MEDS: SUCRALFATE 1 GM/10 ML UDCUP PO SCH ×4 (08:57→22:57)
[2018-08-13] MEDS: TAMSULOSIN 0.4 MG CAPSULE PO SCH (08:57)
[2018-08-13] MEDS: SPIRONOLACTONE 25 MG TABLET PO SCH (08:57)
[2018-08-13] MEDS: FOLIC ACID 1 MG TABLET PO SCH (08:58)
[2018-08-13] MEDS: predniSONE 20 MG TABLET PO SCH (08:59)
[2018-08-13] MEDS: PANTOPRAZOLE 40 MG TABLET PO SCH ×2 (08:59→22:58)
[2018-08-13] MEDS: PARoxetine 20 MG TABLET PO SCH (08:59)
[2018-08-13] MEDS: FUROSEMIDE 20 MG TABLET PO SCH (08:59)
[2018-08-13] MEDS: MENTHOL/ZINC OXIDE OINT 71 GM JAR TOP SCH ×2 (08:59→21:06)
[2018-08-13] MEDS: SODIUM HYPOCHLORITE 0.25% IRRIG 473 ML BOTTLE TOP SCH (08:59)
[2018-08-13] MEDS: COLESTIPOL 1 GM TABLET PO SCH ×2 (11:12→21:11)
[2018-08-13] MEDS: SODIUM CHLORIDE 0.45% 1,000 ML IV SCH (11:14)
[2018-08-14 01:41] LABS: Hematocrit 27.6 VOL% (42.0-52.0); Hemoglobin 9.6 GM/DL (14.0-18.0); Immature Granulocytes % 9.2 %; Immature Granulocytes Absolute 0.39 #; Lymphocytes # 0.3 10*3/uL (1.4-4.0); Lymphocytes % 7.1 % (21.2-54.2); Mean Corpuscular HGB Conc 34.8 GM/DL (32-36); Mean Corpuscular Hemoglobin 34 PG (27-34); Mean Corpuscular Volume 96.5 FL (87-102); Mean Platelet Volume 11.5 FL (9.6-12.0); Monocytes # 0.2 10*3/uL (0.11-0.8); Monocytes % 3.8 % (1.7-12.7); Neutrophils # 3.4 10*3/uL (1.4-7.4); Neutrophils % 79.9 % (38.7-73.9); Platelet Count 55 T/CUMM (130-400); Red Blood Count 2.86 MC/CUMM (3.8-5.5); Red Cell Distribution Width 16.8 % (9.3-17.3); White Blood Count 4.2 T/CUMM (4-12)
[2018-08-14 01:58] LABS: Albumin 2.2 G/DL (3.4-5.0); Bilirubin,Total 0.4 MG/DL (0.2-1.0); Calcium 8.6 MG/DL (8.5-10.1); Osmolality,Calculated 280.1 MOS/KG (273-304); Potassium 4.6 MMOL/L (3.5-5.1); Total Protein 4.7 G/DL (6.4-8.3)
[2018-08-14 03:17] LABS: Band Neutrophils 12 % (0-10); Lymphocytes 5 % (20-55); Metamyelocytes 3 %; Segmented Neutrophils 75 % (50-85); Total Cells Counted 100
[2018-08-14 03:18] LABS: Anisocytosis 1+; Macrocytosis 1+; Platelet Estimate Decreased
[2018-08-14] MEDS: PARoxetine 20 MG TABLET PO SCH (09:42)
[2018-08-14] MEDS: TAMSULOSIN 0.4 MG CAPSULE PO SCH (09:42)
[2018-08-14] MEDS: predniSONE 20 MG TABLET PO SCH (09:42)
[2018-08-14] MEDS: FOLIC ACID 1 MG TABLET PO SCH (09:43)
[2018-08-14] MEDS: PANTOPRAZOLE 40 MG TABLET PO SCH ×2 (09:43→20:39)
[2018-08-14] MEDS: FUROSEMIDE 20 MG TABLET PO SCH (09:43)
[2018-08-14] MEDS: SPIRONOLACTONE 25 MG TABLET PO SCH (09:43)
[2018-08-14] MEDS: SUCRALFATE 1 GM/10 ML UDCUP PO SCH ×5 (09:49→20:41)
[2018-08-14] MEDS: SODIUM HYPOCHLORITE 0.25% IRRIG 473 ML BOTTLE TOP SCH (09:51)
[2018-08-14] MEDS: MENTHOL/ZINC OXIDE OINT 71 GM JAR TOP SCH ×2 (09:51→22:13)
[2018-08-14] MEDS: SODIUM CHLORIDE 0.45% 1,000 ML IV SCH (11:21)
[2018-08-14] MEDS: COLESTIPOL 1 GM TABLET PO SCH ×2 (11:22→20:39)
[2018-08-14] MEDS: ALBUTEROL/IPRATROPIUM 3 ML NEB RESP TX PRN (15:36)
[2018-08-14] MEDS: MEGESTROL 400 MG/10 ML UDCUP PO SCH (22:13)
[2018-08-15 04:46] LABS: Eosinophils % 0.3 % (0.00-10.9); Hematocrit 26.6 VOL% (42.0-52.0); Hemoglobin 9.2 GM/DL (14.0-18.0); Immature Granulocytes % 11.2 %; Lymphocytes # 0.4 10*3/uL (1.4-4.0); Lymphocytes % 9.8 % (21.2-54.2); Mean Corpuscular HGB Conc 34.6 GM/DL (32-36); Mean Corpuscular Hemoglobin 34 PG (27-34); Mean Corpuscular Volume 98.2 FL (87-102); Mean Platelet Volume 11.6 FL (9.6-12.0); Monocytes # 0.2 10*3/uL (0.11-0.8); Monocytes % 5.3 % (1.7-12.7); NRBC # 0.02 10*3/uL; Neutrophils # 2.6 10*3/uL (1.4-7.4); Neutrophils % 73.4 % (38.7-73.9); Red Blood Count 2.71 MC/CUMM (3.8-5.5); Red Cell Distribution Width 16.8 % (9.3-17.3); White Blood Count 3.6 T/CUMM (4-12)
[2018-08-15 04:58] LABS: Platelet Count 54 T/CUMM (130-400)
[2018-08-15 05:08] LABS: Bilirubin,Total 0.7 MG/DL (0.2-1.0); Calcium 8.5 MG/DL (8.5-10.1); Potassium 4.6 MMOL/L (3.5-5.1); Total Protein 4.4 G/DL (6.4-8.3)
[2018-08-15 05:47] LABS: Band Neutrophils 6 % (0-10); Eosinophils 1 % (0-10); Lymphocytes 11 % (20-55); Nucleated Red Blood Cells 1 (0-5); Segmented Neutrophils 76 % (50-85); Total Cells Counted 100
[2018-08-15 05:48] LABS: Anisocytosis 1+; Hypochromasia 1+; Macrocytosis 1+; Ovalocytes Slight; Tear Drop Cells Slight
[2018-08-15 05:49] LABS: Platelet Estimate Decreased
[2018-08-15] MEDS: ALBUTEROL/IPRATROPIUM 3 ML NEB RESP TX PRN ×2 (08:53→22:41)
[2018-08-15] MEDS: MEGESTROL 400 MG/10 ML UDCUP PO SCH ×2 (09:16→22:39)
[2018-08-15] MEDS: SUCRALFATE 1 GM/10 ML UDCUP PO SCH ×4 (09:16→22:39)
[2018-08-15] MEDS: SPIRONOLACTONE 25 MG TABLET PO SCH (09:17)
[2018-08-15] MEDS: COLESTIPOL 1 GM TABLET PO SCH ×3 (09:18→20:31)
[2018-08-15] MEDS: predniSONE 20 MG TABLET PO SCH (09:19)
[2018-08-15] MEDS: TAMSULOSIN 0.4 MG CAPSULE PO SCH (09:19)
[2018-08-15] MEDS: PARoxetine 20 MG TABLET PO SCH (09:19)
[2018-08-15] MEDS: FOLIC ACID 1 MG TABLET PO SCH (09:19)
[2018-08-15] MEDS: PANTOPRAZOLE 40 MG TABLET PO SCH ×2 (09:19→20:31)
[2018-08-15] MEDS: FUROSEMIDE 20 MG TABLET PO SCH (09:19)
[2018-08-15] MEDS: MENTHOL/ZINC OXIDE OINT 71 GM JAR TOP SCH ×2 (17:28→22:39)
[2018-08-15] MEDS: SODIUM HYPOCHLORITE 0.25% IRRIG 473 ML BOTTLE TOP SCH (17:28)
[2018-08-16] MEDS ORDERED: MORPHINE 4 MG/1 ML VIAL IV ONE (03:05)
[2018-08-16] MEDS ORDERED: MORPHINE 4 MG/1 ML VIAL ONE (03:13)
[2018-08-16] MEDS ORDERED: MORPHINE 4 MG/1 ML VIAL IV PRN (06:36)
[2018-08-16] MEDS: MORPHINE 10 MG/1 ML VIAL IV PRN ×3 (11:39→22:30)
[2018-08-16] MEDS: MENTHOL/ZINC OXIDE OINT 71 GM JAR TOP SCH (15:09)
[2018-08-16] MEDS: TAMSULOSIN 0.4 MG CAPSULE PO SCH (15:09)
[2018-08-16] MEDS: COLESTIPOL 1 GM TABLET PO SCH ×2 (15:09→20:05)
[2018-08-16] MEDS: SPIRONOLACTONE 25 MG TABLET PO SCH (15:09)
[2018-08-16] MEDS: SUCRALFATE 1 GM/10 ML UDCUP PO SCH ×3 (15:09→22:30)
[2018-08-16] MEDS: predniSONE 20 MG TABLET PO SCH (15:10)
[2018-08-16] MEDS: FOLIC ACID 1 MG TABLET PO SCH (15:10)
[2018-08-16] MEDS: FUROSEMIDE 20 MG TABLET PO SCH (15:10)
[2018-08-16] MEDS: PARoxetine 20 MG TABLET PO SCH (15:10)
[2018-08-16] MEDS: PANTOPRAZOLE 40 MG TABLET PO SCH ×2 (15:11→20:05)
[2018-08-16] MEDS: SODIUM HYPOCHLORITE 0.25% IRRIG 473 ML BOTTLE TOP SCH (19:00)
[2018-08-16] MEDS: MEGESTROL 400 MG/10 ML UDCUP PO SCH (19:11)
[2018-08-16] MEDS: FUROSEMIDE 40 MG/4 ML VIAL IV SCH (20:46)
[2018-08-17] MEDS: MORPHINE 10 MG/1 ML VIAL IV PRN (05:06)
[2018-08-17] MEDS: MENTHOL/ZINC OXIDE OINT 71 GM JAR TOP SCH ×3 (05:06→20:56)
[2018-08-17] MEDS: SUCRALFATE 1 GM/10 ML UDCUP PO SCH ×2 (07:23→10:32)
[2018-08-17] MEDS: FUROSEMIDE 40 MG/4 ML VIAL IV SCH (08:18)
[2018-08-17] MEDS: SODIUM HYPOCHLORITE 0.25% IRRIG 473 ML BOTTLE TOP SCH (08:19)
[2018-08-17] MEDS ORDERED: PANTOPRAZOLE 40 MG VIAL IV SCH (09:00)
[2018-08-17] MEDS: SODIUM CHLORIDE 0.45% 1,000 ML IV SCH ×2 (10:32)
[2018-08-18] MEDS: MORPHINE 10 MG/1 ML VIAL IV PRN ×2 (04:45→17:02)
[2018-08-18] MEDS: FUROSEMIDE 40 MG/4 ML VIAL IV SCH (10:39)
[2018-08-18] MEDS: SODIUM CHLORIDE 0.45% 1,000 ML IV SCH (13:40)
[2018-08-18] MEDS: MENTHOL/ZINC OXIDE OINT 71 GM JAR TOP SCH ×2 (17:05→21:10)
[2018-08-18] MEDS: SODIUM HYPOCHLORITE 0.25% IRRIG 473 ML BOTTLE TOP SCH (17:05)
[2018-08-19 05:36] VITALS: BP 64/31
== END 2018-08-19 05:48 | disposition expired | DRG 813 ==
LOC: N.2W 15:14 → N.4E 16:23
PROVIDERS: ADMIT Specialist; ATTEND Specialist